=== PATIENT | male | born 1960 | race Caucasian/White ===

== ENCOUNTER 2018-05-06 08:07 | Outpatient (CLI) | payer OTHER, SELFPAY ==
[2018-05-06 09:27] LABS: C-Reactive Protein 0.18 mg/dL (0.0-0.3); ESR 7 MM/HR (1-20)
[2018-05-06 21:07] LABS: Ionized Calcium 1.15 mmol/L (1.12-1.32)
[2018-05-07 13:47] LABS: ANCA Interpretation Negative (NEGAT)
[2018-05-07 15:36] LABS: Angiotensin Converting Enzyme 30 U/L (8 - 53)
== END 2018-05-06 08:27 ==
PROVIDERS: PCP Family Medicine Adult Medicine; Visit Provider Otolaryngology
DX: R22.0 Localized swelling, mass and lump, head (principal)
CPT/HCPCS: 36415; 82164; 85652; 86255; 82330; 86140

== ENCOUNTER 2018-07-19 07:45 | Outpatient (CLI) | payer OTHER, SELFPAY ==
[2018-07-19 08:03] LABS: HCT 47.2 % (40.0-50.0); HGB 15.8 g/dL (13.5-17.5); Mean Corp. HGB Concentration 33.5 g/dL (32.0-36.0); Mean Corpuscular Volume 95.7 fL (80-95); Mean Platelet Volume 9.6 fL (8.0-11.0); Platelet Count 263 x1000/uL (130-400); RBC 4.93 m/cumm (4.50-6.00); RBC Distribution Width 14.3 % (11.8-14.1); White Blood Cell Count 12.31 k/cumm (4.4-10.8)
[2018-07-19 08:46] LABS: ESR 4 MM/HR (1-20)
[2018-07-19 09:44] LABS: ALT 60 U/L (12-78); AST 30 U/L (15-37); Alkaline Phosphatase 64 U/L (46-116); Anion Gap 6.7 mmol/L (3-11); BUN 17 mg/dL (7-18); Bilirubin, Total 0.6 mg/dL (0.2-1.0); CO2 29.3 mmol/L (21.0-32.0); CREATININE 0.93 mg/dL (0.70-1.30); Calcium 9.7 mg/dL (8.5-10.1); Chloride 102 mmol/L (98-107); Glucose 107 mg/dL (70-100); Potassium 4.6 mmol/L (3.5-5.1); Sodium 138 mmol/L (136-145); Total Protein 7.3 g/dL (6.4-8.2)
== END 2018-07-19 08:05 ==
PROVIDERS: PCP Family Medicine Adult Medicine; Visit Provider Internal Medicine Rheumatology
DX: G51.8 Other disorders of facial nerve (principal); Z79.899 Other long term (current) drug therapy
CPT/HCPCS: 36415; 80053; 85027; 85652; 86140

== ENCOUNTER 2018-09-20 09:14 | Outpatient (CLI) | payer OTHER, SELFPAY ==
[2018-09-20 09:32] LABS: HCT 47.3 % (40.0-50.0); HGB 15.8 g/dL (13.5-17.5); Mean Corp. HGB Concentration 33.4 g/dL (32.0-36.0); Mean Corpuscular Hemoglobin 33.1 pg (27.0-33.0); Mean Corpuscular Volume 99.2 fL (80-95); Mean Platelet Volume 9.9 fL (8.0-11.0); Platelet Count 234 x1000/uL (130-400); RBC 4.77 m/cumm (4.50-6.00); RBC Distribution Width 14.3 % (11.8-14.1)
[2018-09-20 10:22] LABS: ESR 5 MM/HR (1-20)
[2018-09-20 10:36] LABS: ALT 64 U/L (12-78); AST 39 U/L (15-37); Albumin 3.8 g/dL (3.4-5.0); Alkaline Phosphatase 70 U/L (46-116); Anion Gap 7.4 mmol/L (3-11); BUN 13 mg/dL (7-18); Bilirubin, Total 0.6 mg/dL (0.2-1.0); CO2 29.6 mmol/L (21.0-32.0); Calcium 9.4 mg/dL (8.5-10.1); Chloride 102 mmol/L (98-107); Glucose 101 mg/dL (70-100); Potassium 4.6 mmol/L (3.5-5.1); Sodium 139 mmol/L (136-145); Total Protein 7.3 g/dL (6.4-8.2)
== END 2018-09-20 09:34 ==
PROVIDERS: PCP Family Medicine Adult Medicine; Visit Provider Internal Medicine Rheumatology
DX: D86.9 Sarcoidosis, unspecified (principal); Z79.899 Other long term (current) drug therapy
CPT/HCPCS: 36415; 80053; 85027; 85652

== ENCOUNTER 2018-11-15 07:32 | Outpatient (CLI) | payer OTHER, SELFPAY ==
[2018-11-15 08:14] LABS: Abs Immature Grans 0.01 k/cumm (0.0-0.09); Absolute Basophil Count 0.01 k/cumm (0.0-0.2); Absolute Eosinophil Count 0.17 k/cumm (0.0-0.7); Absolute Lymphocyte Count 0.95 k/cumm (1.2-3.4); Absolute Monocyte Count 0.71 k/cumm (0.11-0.7); Absolute Neutrophil Count 3.92 k/cumm (1.2-6.7); Basophils % 0.2; Eosinophils % 2.9; HCT 47.4 % (40.0-50.0); Immature Grans % 0.2; Lymphocytes % 16.5; Mean Corp. HGB Concentration 33.8 g/dL (32.0-36.0); Mean Corpuscular Hemoglobin 32.7 pg (27.0-33.0); Mean Corpuscular Volume 96.9 fL (80-95); Monocytes % 12.3; Neutrophils % 67.9; Platelet Count 251 x1000/uL (130-400); RBC 4.89 m/cumm (4.50-6.00); RBC Distribution Width 13.2 % (11.8-14.1); White Blood Cell Count 5.77 k/cumm (4.4-10.8)
[2018-11-15 08:47] LABS: ALT 68 U/L (12-78); AST 37 U/L (15-37); Albumin 3.9 g/dL (3.4-5.0); Alkaline Phosphatase 73 U/L (46-116); Anion Gap 8.6 mmol/L (3-11); BUN 17 mg/dL (7-18); Bilirubin, Total 0.8 mg/dL (0.2-1.0); CO2 27.4 mmol/L (21.0-32.0); CREATININE 0.91 mg/dL (0.70-1.30); Calcium 9.4 mg/dL (8.5-10.1); Chloride 104 mmol/L (98-107); Cholesterol 169 mg/dL (50-200); Glucose 101 mg/dL (70-100); HDL Cholesterol 74 mg/dL (40-60); LDL CHOLESTEROL 82 mg/dL (<100); Potassium 4.7 mmol/L (3.5-5.1); Sodium 140 mmol/L (136-145); TSH (W/Ref FT4) 3.03 uIU/mL (0.358-3.74); Total Protein 7.2 g/dL (6.4-8.2); Triglyceride 79 mg/dL (30-150)
[2018-11-16 08:44] LABS: PSA, Screening 1.8 ng/ml (0-3.5)
== END 2018-11-15 07:52 ==
PROVIDERS: PCP Family Medicine Adult Medicine; Visit Provider Family Medicine Adult Medicine
DX: Z00.00 Encounter for general adult medical examination without abnormal findings (principal); Z13.220 Encounter for screening for lipoid disorders; Z13.228 Encounter for screening for other metabolic disorders; Z13.29 Encounter for screening for other suspected endocrine disorder; Z12.5 Encounter for screening for malignant neoplasm of prostate
CPT/HCPCS: 36415; 80053; 80061; 83721; 84153; 84443; 85025

== ENCOUNTER 2018-11-24 10:43 | Outpatient (CLI) | payer OTHER, SELFPAY ==
--- NOTE | 2018-11-24 08:49 | DI.RAD_ITS ---
SYMPTOM/DIAGNOSIS: SARCOIDOSIS, SOB, R06.02, ON METHOTREXATE, ? PULMONARY SARCOID PA AND LATERAL CHEST: The lungs are well expanded and free of infiltrate. There is no pleural effusion. The heart is not enlarged. The hilar structures, mediastinum and tracheal air column are intact. SUMMARY: Normal chest.
== END 2018-11-24 11:03 ==
PROVIDERS: PCP Family Medicine Adult Medicine; Visit Provider Internal Medicine Rheumatology
DX: D86.9 Sarcoidosis, unspecified (principal); Z79.899 Other long term (current) drug therapy; R06.02 Shortness of breath
CPT/HCPCS: 71046

== ENCOUNTER 2018-12-13 07:42 | Outpatient (CLI) | payer OTHER, SELFPAY ==
[2018-12-13 08:25] LABS: HGB 15.9 g/dL (13.5-17.5); Mean Corp. HGB Concentration 33.8 g/dL (32.0-36.0); Mean Corpuscular Hemoglobin 32.5 pg (27.0-33.0); Mean Corpuscular Volume 96.1 fL (80-95); Mean Platelet Volume 9.8 fL (8.0-11.0); Platelet Count 238 x1000/uL (130-400); RBC 4.89 m/cumm (4.50-6.00); RBC Distribution Width 13.1 % (11.8-14.1); White Blood Cell Count 7.26 k/cumm (4.4-10.8)
[2018-12-13 09:25] LABS: ALT 69 U/L (12-78); AST 38 U/L (15-37); Alkaline Phosphatase 81 U/L (46-116); Anion Gap 10.9 mmol/L (3-11); BUN 12 mg/dL (7-18); Bilirubin, Total 0.7 mg/dL (0.2-1.0); C-Reactive Protein 0.14 mg/dL (0.0-0.3); CO2 26.1 mmol/L (21.0-32.0); CREATININE 0.92 mg/dL (0.70-1.30); Calcium 9.3 mg/dL (8.5-10.1); Chloride 100 mmol/L (98-107); Glucose 107 mg/dL (70-100); Potassium 4.8 mmol/L (3.5-5.1); Sodium 137 mmol/L (136-145); Total Protein 7.1 g/dL (6.4-8.2)
== END 2018-12-13 08:02 ==
PROVIDERS: PCP Family Medicine Adult Medicine; Visit Provider Internal Medicine Rheumatology
DX: G51.8 Other disorders of facial nerve (principal); Z79.899 Other long term (current) drug therapy
CPT/HCPCS: 36415; 80053; 85027; 85652; 86140

== ENCOUNTER 2021-01-16 04:28 | Outpatient (CLI) | payer OTHER, SELFPAY ==
[2021-01-16 09:11] LABS: ALT 55 U/L (16-63); AST 30 U/L (15-37); Albumin 3.9 g/dL (3.4-5.0); Alkaline Phosphatase 81 U/L (46-116); Anion Gap 8.1 mmol/L (3-11); BUN 15 mg/dL (7-18); CO2 30.9 mmol/L (21.0-32.0); CREATININE 0.9 mg/dL (0.70-1.30); Calcium 9.4 mg/dL (8.5-10.1); Calculated LDL 97 mg/dL (<100); Chloride 103 mmol/L (98-107); Cholesterol 180 mg/dL (<200); Glucose 91 mg/dL (74-106); HDL Cholesterol 74 mg/dL (40-60); Potassium 4.6 mmol/L (3.5-5.1); Sodium 142 mmol/L (136-145); Total Protein 7.3 g/dL (6.4-8.2); Triglyceride 46 mg/dL (<150)
== END 2021-01-16 04:29 | disposition home or self-care (01) ==
LOC: LBO 04:28
PROVIDERS: PCP Family Medicine; Visit Provider Family Medicine
DX: E78.2 Mixed hyperlipidemia (principal)
CPT/HCPCS: 36415; 80053; 80061

== ENCOUNTER 2023-01-16 00:29 | Outpatient (CLI) | payer BC, SELFPAY ==
--- NOTE | 2023-01-16 09:38 | DI.RAD_ITS ---
Exam(s) XR KNEE LT 3V AP,LAT,MARCIO EXAM: XR KNEE LT 3V AP,LAT,MARCIO CLINICAL HISTORY: B/l chronic knee pain,BILAT OA,M17.0. TECHNIQUE: 2D digital imaging was performed of the left knee. Three images were obtained. AP, late ral and PA tunnel views were obtained. COMPARISON: There are no priors for comparison. FINDINGS: BONES: No acute fracture is present. No bony destructive lesion is seen. JOINTS: The knee is normally aligned. No joint effusion is seen. 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 There is mild narrowing of the medial femoral tibial joint space. SOFT TISSUE: Atherosclerosis is present. IMPRESSION: Mild osteoarthritis of the left knee. DATA REPOSITORY: RADIATION DOSE DELIVERED:
--- NOTE | 2023-01-16 09:38 | DI.RAD_ITS ---
Exam(s) XR KNEE RT 3V AP,LAT,MARCIO EXAM: XR KNEE RT 3V AP,LAT,MARCIO CLINICAL HISTORY: Chronic knee pain,OA KNEES BILAT,M17.0. TECHNIQUE: 2D digital imaging was performed of the right knee. Three views obtained. AP, lateral an d PA tunnel views were obtained. COMPARISON: There are no priors for comparison. FINDINGS: BONES: No acute fracture is present. No bony destructive lesion is seen. JOINTS: The knee is normally aligned. No joint effusion is seen. There is chondrocalcinosis in the fe moral tibial joint raising the question of CPPD arthropathy. There is mild narrowing of the medial f emoral tibial joint space. Mild spurring is seen at the posterior patella and the lateral femoral ti bial joint. There is joint space narrowing at the patellofemoral joint. SOFT TISSUE: Normal. IMPRESSION: There are moderate degenerative changes of the right knee. DATA REPOSITORY: RADIATION DOSE DELIVERED:
== END 2023-01-16 00:49 ==
LOC: DI 00:30
PROVIDERS: PCP Family Medicine; Visit Provider Family Medicine
DX: M17.0 Bilateral primary osteoarthritis of knee (principal)
CPT/HCPCS: 73562

== ENCOUNTER 2025-02-07 09:42 | Outpatient (CLI) | payer MEDICARE, SELFPAY ==
[2025-02-07 10:11] LABS: ALT 50 U/L (16-63); AST 25 U/L (15-37); Alkaline Phosphatase 85 U/L (46-116); Anion Gap 6.7 mmol/L (3-11); BUN 14 mg/dL (7-18); Bilirubin, Total 0.7 mg/dL (0.2-1.0); CO2 30.3 mmol/L (21.0-32.0); CREATININE 0.9 mg/dL (0.70-1.30); Calculated LDL 81 mg/dL (<100); Chloride 104 mmol/L (98-107); Cholesterol 164 mg/dL (<200); Estimated GFR 94.19 (mL/min/1.73m2); Glucose 117 mg/dL (74-106); HDL Cholesterol 75 mg/dL (>or=40); Potassium 4.5 mmol/L (3.5-5.1); Sodium 141 mmol/L (136-145); Total Protein 7.4 g/dL (6.4-8.2); Triglyceride 41 mg/dL (<150)
== END 2025-02-07 09:43 | disposition home or self-care (01) ==
LOC: LBO 09:44
PROVIDERS: PCP Family Medicine; Visit Provider Family Medicine
DX: E78.2 Mixed hyperlipidemia (principal)
CPT/HCPCS: 36415; 80053; 80061